=== PATIENT | male | born 1980 | race Caucasian/White ===

== ENCOUNTER 2021-06-13 00:41 | Emergency (ER) | payer MEDICARE, MEDICAID ==
[~2021-06-13] VITALS: Ht 175.3 cm; Wt 81.6 kg
--- NOTE | 2021-06-13 00:58 | NUR ---
PT BIBRA C/O NOT BEING ABLE TO SLEEP AND HEARING VOICES. PT AAOX4 BREATHING EVENLY AND UNLABORED. PT STATES THAT HE IS HEARING VOICES. PT DENIES SI. PT ATTACHED TO MONITOR AND POX. MD AT BEDSIDE FOR EVAL. PT GIVEN BLANKET AND CALL LIGHT WITHIN REACH
--- NOTE | 2021-06-13 01:00 | NUR ---
PT SITTING QUIETLY, WATCHING TV, VSS
[2021-06-13 02:09] LABS: BASOPHILS % (AUTO) 0.6 % (0.0-2.0); EOSINOPHILS % (AUTO) 1.2 % (0.0-6.0); HEMATOCRIT 43 % (39-51); HEMOGLOBIN 14.9 g/dL (13.5-17.5); LYMPHOCYTES % (AUTO) 24.2 % (20.0-44.0); MEAN CORPUSCULAR HGB CONC 35 g/dl (31.0-36.0); MEAN CORPUSCULAR VOLUME 83 fL (80-96); MONOCYTES # (AUTO) 0.6 K/uL (0.1-1.30); MONOCYTES % (AUTO) 7.5 % (2.0-12.0); NEUTROPHILS # (AUTO) 5.4 K/uL (1.8-8.9); NEUTROPHILS % (AUTO) 66.5 % (43.0-81.0); PLATELET COUNT (AUTO) 279 K/uL (150-450); RED BLOOD CELL COUNT(AUTO) 5.14 MIL/uL (4.5-6.0); WHITE BLOOD COUNT (AUTO) 8.2 K/uL (4.3-11.0)
--- NOTE | 2021-06-13 02:15 | NUR ---
PT BECOMING RESTLESS, BUT STILL DIRECTABLE
[2021-06-13 02:16] LABS: CALCIUM, SERUM 8.7 mg/dL (8.5-10.1); CREATININE 0.8 mg/dL (0.6-1.3)
[2021-06-13 02:22] LABS: ALBUMIN 4.1 g/dL (3.4-5.0); BILIRUBIN,DIRECT 0.1 mg/dL (0.0-0.2); BILIRUBIN,TOTAL 0.6 mg/dL (0.2-1.0)
[2021-06-13 03:13] LABS: BILIRUBIN,URINE NEGATIVE (NEGATIVE); COLOR,URINE YELLOW (YELLOW); LEUKOCYTE ESTERASE ,URINE NEGATIVE (NEGATIVE); NITRITE, URINE NEGATIVE (NEGATIVE); PROTEIN,URINE NEGATIVE (NEGATIVE); UGLUCOSE NEGATIVE (NEGATIVE); UROBILINOGEN,URINE 0.2 EU/dL (0.2)
--- NOTE | 2021-06-13 03:45 | NUR ---
PT INCREASINGLY RESTLESS, STILL DIRECTABLE. PT STATES "I HAVE A NIECE THAT NEEDS ME AT HOME" AWARE
[2021-06-13] MEDS ORDERED: POTASSIUM CHLORIDE 20 MEQ TAB.PRT.SR PO ONE ×2 (04:00→04:11)
--- NOTE | 2021-06-13 04:49 | NUR ---
PT WANT TO LEAVE AND GO HOME. PT IS DENYING SUICIDAL NOR HOMICIDAL IDEATION. PT DOES NOT WANT TO WAIT FORTHE MD AND WALKED OUT. MD WAS NOTIFIED.
--- NOTE | 2021-06-13 04:49 | NUR ---
Patient eloped from facility. ER MD notified.
[2021-06-13 05:06] LABS: BACTERIA,URINE None seen /HPF (None Seen); URIC ACID CRYSTALS,URINE Many /HPF (None Seen); WBC,URINE NONE SEEN /HPF (0-3)
[2021-06-13 06:06] VITALS: BP 147/80
== END 2021-06-13 04:49 | disposition left against medical advice (07) ==
LOC: EDUNIT# 00:41 → ER 00:51
DX: R44.1 Visual hallucinations (principal); F41.9 Anxiety disorder, unspecified; F32.9 Major depressive disorder, single episode, unspecified; F90.9 Attention-deficit hyperactivity disorder, unspecified type
CPT/HCPCS: 36415; 70450-TC; 80048-TC; 80076-TC; 81001; 85025-TC; G0480